=== PATIENT | male | born 1960 | race Hispanic/Latino ===

== ENCOUNTER → 2020-01-26 | Outpatient (CLI) | payer MEDICAID ==
[~2020-01-26] MED LIST: ATOR40TA71 PO; CARV6.25 PO; FAMO20TA8 PO; GLIP10TA9 PO; METF-446 PO; RENAVITE; TICA60TA PO; WARF-57 PO
== END | disposition home or self-care (01) ==
LOC: SHCH 08:28
PROVIDERS: ATTEND Internal Medicine Cardiovascular Disease
DX: I65.23 Occlusion and stenosis of bilateral carotid arteries (principal)
CPT/HCPCS: 93880

== ENCOUNTER → 2020-05-09 | Outpatient (CLI) | payer MEDICAID | END | disposition home or self-care (01) | LOC: SHCH 12:47 | PROVIDERS: ATTEND Internal Medicine Cardiovascular Disease | DX: I70.298 Other atherosclerosis of native arteries of extremities, other extremity (principal) | CPT/HCPCS: 93925 ==